=== PATIENT | female | born 1990 | race Caucasian/White ===

== ENCOUNTER 2017-09-30 13:33 | Emergency (ER) | payer MEDICAID ==
[2017-09-30 13:42] VITALS: RESP 16; O2SAT 96
[2017-09-30] MEDS ORDERED: ONDANSETRON 4 MG/2 ML VIAL IVP ONE (14:37)
[2017-09-30] MEDS ORDERED: NS 1,000 ML IV ONE (14:37)
--- NOTE | 2017-09-30 14:46 | EDPHY ---
H & P Time Seen by Provider: 09/30/17 14:35 HPI/ROS: CHIEF COMPLAINT: Nausea, vomiting, abdominal pain HISTORY OF PRESENT ILLNESS: The patient is a 27 y/o female complaining of nausea, vomiting, and abdominal pain, onset 2 AM, 13 hours ago. She was drinking alcohol last night and began vomiting around 2 AM. She has had multiple episodes of vomiting since and has been unable to tolerate any oral fluids. She has associated generalized weakness. She denies fever, diarrhea, or any other associated symptoms. She reports she ate oysters last night and her boyfriend was tachycardic last night and was evaluated in the ED. REVIEW OF SYSTEMS: A 10 point review of systems was performed and is negative with the exception of the elements mentioned in the history of present illness. Past Medical/Surgical History: 1. Multiple orthopedic surgeries 2. Post concussion syndrome from injury multiple years ago 3. Herniated disc lumbar spine Social History: Friend at bedside, lives in [place], employed Smoking Status: Current every day smoker Physical Exam: General Appearance: Alert, pleasant, nontoxic-appearing Eyes: Pupils equal and round, no conjunctival pallor or injection ENT, Mouth: Mucous membranes moist Neck: Normal inspection Respiratory: Lungs are clear to auscultation Cardiovascular: Regular rate and rhythm Gastrointestinal: Epigastric tenderness. Abdomen is soft Neurological: A&O, nonfocal exam Skin: Warm and dry, no rash Extremities: Nontender, no pedal edema Psychiatric: Mood and affect normal Constitutional: Initial Vital Signs Temperature (C) 36.7 C 09/30/17 13:39 Heart Rate 61 09/30/17 13:39 Respiratory Rate 16 09/30/17 13:39 Blood Pressure 125/70 H 09/30/17 13:39 O2 Sat (%) 96 09/30/17 13:39 O2 Delivery Mode Room Air Allergies/Adverse Reactions: levetiracetam [From Keppra] Allergy (Verified 09/30/17 14:56) Home Medications: Medication Instructions Recorded Ondansetron Odt [Zofran Odt 4 mg 4 mg PO Q4 PRN #6 tab 09/30/17 (*)] Medical Decision Making ED Course/Re-evaluation: The patient presents with nausea, vomiting, and abdominal pain after drinking alcohol and eating oysters last night. She denies fever or diarrhea. On exam, she has epigastric tenderness; abdominal exam is benign. 1 L fluids and 4mg Zofran IV given. 3:30 p.m.-feels better after IV fluids and Zofran. Nausea has resolved. Abdomen is soft and nontender. Symptoms consistent with acute gastritis. Abdominal pain instructions given. Differential Diagnosis: Differential diagnosis includes though it is not limited to appendicitis, cholecystitis, diverticulitis, pyelonephritis, bowel perforation, small bowel obstruction. - Data Points Medications Given: Discontinued Medications Sodium Chloride (Ns) 1,000 mls @ 0 mls/hr IV EDNOW ONE; Wide Open PRN Reason: Protocol Stop: 09/30/17 14:38 Last Admin: 09/30/17 14:50 Dose: 1,000 mls Ondansetron HCl (Zofran) 4 mg IVP EDNOW ONE Stop: 09/30/17 14:38 Last Admin: 09/30/17 14:50 Dose: 4 mg Departure - Departure Disposition: Home, Routine, Self-Care Clinical Impression: Acute gastritis Qualifiers: Gastritis type: superficial Gastritis bleeding: without bleeding Qualified Code (s): K29.00 - Acute gastritis without bleeding Condition: Good Instructions: Gastritis (ED), Acute Nausea and Vomiting (ED) Additional Instructions: 1. Take 1 tablet of Zofran under the tongue as directed as needed for nausea. 2. Consume clear liquids like water, gatorade, deshawn cynthia, and chicken broth for 24 hours. After 24 hours slowly introduce bland foods like bananas, rice, applesauce, and toast as tolerated. 3. Return to the ED for bloody vomit, uncontrollable vomiting, or any other worsening of condition. Referrals: Neeta Dooley MD [[facility] [place] Primary [place] Provider] - As per Instructions Prescriptions: Ondansetron Odt [Zofran Odt 4 mg (*)] 4 mg PO Q4 PRN #6 tab PRN Reason: Nausea Report Scribed for: Marie Penn Report Scribed by: Brittany Powell Date of Report: 09/30/17 Time of Report: 14:46 Physician Review and Approval Statement: 09/30/17 14:46 Portions of this note were transcribed by a pediatric medical assistant. I personally performed a history, physical exam, medical decision making, and confirmed accuracy of information the transcribed note.
[2017-09-30 16:03] VITALS: BP 118/75; PULSE 65; TEMP 96.8
== END 2017-09-30 16:03 | disposition home or self-care (01) ==
DX: K29.00 Acute gastritis without bleeding (principal); F17.200 Nicotine dependence, unspecified, uncomplicated; E86.9 Volume depletion, unspecified
CPT/HCPCS: 96374; J2405

== ENCOUNTER 2017-10-19 16:13 | Emergency (ER) | payer OTHER, MEDICAID ==
[2017-10-19 16:18] VITALS: BP 137/87; PULSE 65; RESP 18; TEMP 97.9; O2SAT 99
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
== END 2017-10-19 17:02 | disposition home or self-care (01) ==
DX: S16.1XXA Strain of muscle, fascia and tendon at neck level, initial encounter (principal); S09.90XA Unspecified injury of head, initial encounter; F17.200 Nicotine dependence, unspecified, uncomplicated; V49.40XA Driver injured in collision with unspecified motor vehicles in traffic accident, initial encounter; Y92.410 Unspecified street and highway as the place of occurrence of the external cause; Y99.8 Other external cause status; Y93.89 Activity, other specified

== ENCOUNTER 2019-01-07 08:22 | Emergency (ER) | payer MEDICAID ==
[2019-01-07] MEDS ORDERED: IBUPROFEN 600 MG TAB PO ONE (08:38)
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
[2019-01-07 09:30] VITALS: BP 112/77
== END 2019-01-07 09:30 | disposition home or self-care (01) ==
DX: S89.92XA Unspecified injury of left lower leg, initial encounter (principal); W19.XXXA Unspecified fall, initial encounter; X50.1XXA Overexertion from prolonged static or awkward postures, initial encounter
CPT/HCPCS: L1830